=== PATIENT | male | born 2000 | race African-American/Black ===

== ENCOUNTER 2024-07-08 15:11 | Emergency (ER) | payer OTHER ==
[~2024-07-08] VITALS: Ht 180.3 cm; Wt 72.7 kg
[2024-07-08] MEDS ORDERED: VENTOLIN HFA18 GM INH ×2 (15:27→16:01)
[2024-07-08] MEDS ORDERED: MAPAP500 MG PO (16:01)
[2024-07-08 16:09] VITALS: BP 117/69
== END 2024-07-08 16:10 | disposition home or self-care (01) ==
LOC: ED 15:11
DX: J45.909 Unspecified asthma, uncomplicated (principal); Z79.899 Other long term (current) drug therapy
CPT/HCPCS: 99284

== ENCOUNTER 2024-09-27 23:32 | Emergency (ER) | payer OTHER ==
[~2024-09-27] VITALS: Ht 180.3 cm; Wt 72.0 kg
[~2024-09-27 23:32] MED LIST: MAPAP500 MG PO; VENTOLIN HFA18 GM INH
[2024-09-27] MEDS ORDERED: ALBUTEROL/IPRATROPIUM 3 ML NEB INH PRN (23:45)
[2024-09-27] MEDS ORDERED: INHALER, ASSIST DEVICES 1 EACH SPACER MISC ONE (23:45)
[2024-09-28] MEDS ORDERED: ALBUTEROL SULFATE 8 GM HOME.PACK INH ONE (00:30)
[2024-09-28] MEDS ORDERED: INHALER, ASSIST DEVICES 1 EACH SPACER MISC ONE (00:30)
[2024-09-28] MEDS ORDERED: VENTOLIN HFA18 GM INH (00:32)
[2024-09-28 00:43] VITALS: BP 118/63
--- NOTE | 2024-09-30 08:28 | EKG ---
[facility] [address] [facility] [place] [address] Signed Normal sinus rhythm with sinus arrhythmia Normal ECG No previous ECGs available Confirmed by Selena Lake MD ([id number]) on 09/30/2024 8:28:17 AM Electronically Signed By: SELENA LAKE MD 09/30/24827 PATIENT NAME: ARLET PEREZ Electrocardiogram DATE OF : [birth year] PHYSICIAN: SELENA LAKE MD REPORT #: [id number] REPORT IS CONFIDENTIAL AND NOT TO BE RELEASED WITHOUT AUTHORIZATION
== END 2024-09-28 00:45 | disposition home or self-care (01) ==
LOC: ED 23:32
DX: J45.901 Unspecified asthma with (acute) exacerbation (principal); Z79.899 Other long term (current) drug therapy
CPT/HCPCS: 71045; 93005; 93010; 94640; 94664; 99285-25

== ENCOUNTER 2024-10-27 23:51 | Emergency (ER) | payer OTHER ==
[~2024-10-27] VITALS: Ht 180.3 cm; Wt 71.7 kg
--- OUTSIDE RECORDS SUMMARY | 2024-10-27 23:58 | XMS ---
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 Niyah has no Care Guidelines for this patient. [facility] MO[facility] NOTE: Visits indicate total known visits. 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
[2024-10-28] MEDS ORDERED: ALBUTEROL/IPRATROPIUM 3 ML NEB ONE (00:18)
[2024-10-28] MEDS ORDERED: ALBUTEROL/IPRATROPIUM 3 ML NEB INH ONE (00:30)
[2024-10-28 00:36] VITALS: BP 118/90
== END 2024-10-28 00:36 | disposition home or self-care (01) ==
LOC: ED 23:51
DX: Z76.0 Encounter for issue of repeat prescription (principal); J45.909 Unspecified asthma, uncomplicated
CPT/HCPCS: 94640; 99281

== ENCOUNTER 2024-11-21 09:31 | Emergency (ER) | payer OTHER ==
[~2024-11-21] VITALS: Ht 180.3 cm; Wt 71.2 kg
--- OUTSIDE RECORDS SUMMARY | 2024-11-21 09:39 | XMS ---
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 Clinic/Center: [facility] Current FAMILY PHONE: [phone] Niyah has no Care Guidelines for this patient. [place] VISIT COUNT (12 MO.) 4 [facility] TOTAL 4 NOTE: Visits indicate total known visits. 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 [place] TYPE: Emergency COMPLAINT: - ASTHMA DIAGNOSES: - Other residential (current) drug therapy - Shortness of breath - Unspecified asthma, uncomplicated INPATIENT VISIT TRACKING (12 MO.) No inpatient visits to display in this time frame [id number]
[2024-11-21] MEDS ORDERED: VENTOLIN HFA18 GM INH (09:59)
[2024-11-21 10:05] VITALS: BP 129/75
== END 2024-11-21 10:07 | disposition home or self-care (01) ==
LOC: ED 09:31
DX: J45.909 Unspecified asthma, uncomplicated (principal); Z76.0 Encounter for issue of repeat prescription
CPT/HCPCS: 99281

== ENCOUNTER 2025-02-21 06:16 | Emergency (ER) | payer OTHER ==
[~2025-02-21] VITALS: Ht 180.3 cm; Wt 70.0 kg
--- OUTSIDE RECORDS SUMMARY | 2025-02-21 06:23 | XMS ---
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 [facility] MO[facility] [address] TOTAL 7 NOTE: Visits indicate total known visits. ED/C VISIT TRACKING (12 MO.) 02/21/2025 06:17 [facility] [place] TYPE: Emergency COMPLAINT: - MEDICATION REFILL 12/06/2024 12:31 [facility] [place] TYPE: Emergency COMPLAINT: - ABDOMINAL PAIN 11/21/2024 09:32 [facility] [place] TYPE: Emergency COMPLAINT: - MEDICATION REFILL DIAGNOSES: - Encounter for issue of repeat prescription - Shortness of breath - Unspecified asthma, uncomplicated 10/27/2024 23:52 [facility] [place] TYPE: Emergency COMPLAINT: - DIFFICULTY BREATHING DIAGNOSES: - Encounter for issue of repeat prescription - Unspecified asthma, uncomplicated 09/27/2024 23:32 [facility] [place] TYPE: Emergency COMPLAINT: - CHEST THIGNTNESS DIAGNOSES: - 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
[2025-02-21] MEDS ORDERED: VENTOLIN HFA18 GM INH ×2 (06:27→06:29)
[2025-02-21 06:35] VITALS: BP 137/44
--- NOTE | 2025-02-23 12:48 | NUR ---
REFERRAL FOR PCP AT [facility] FAXED. THEY ARE NOT OPEN TODAY TO SCHEDULE AN APPOINTMENT.
== END 2025-02-21 06:36 | disposition home or self-care (01) ==
LOC: ED 06:16
DX: Z76.0 Encounter for issue of repeat prescription (principal); J45.909 Unspecified asthma, uncomplicated
CPT/HCPCS: 99281